=== PATIENT | female | born 1985 | race Caucasian/White ===

== ENCOUNTER 2017-05-21 07:50 | Emergency (ER) | payer OTHER ==
[2017-05-21 08:39] LABS: #Basophils 0.1 thou/uL (0.0-0.2); #Eosinphils 0.2 thou/uL (0.0-0.7); #Lymphocytes 1.6 thou/uL (1.20-3.40); #Monocytes 0.5 thou/uL (0.11-0.59); #Neutrophils 5.8 thou/uL (1.40-6.50); %Basophils 0.8 % (0.0-1.0); %Eosinophils 2.1 % (0.0-10.0); %Lymphocytes 20.1 % (21.0-51.0); %Monocytes 5.7 % (0.0-10.0); Hematocrit 41.3 % (36.0-47.0); Mean Platelet Volume 7.4 fL (7.4-10.4); Red Blood Cell (RBC) Count 4.11 mill/uL (4.20-5.40); White Blood Cell (WBC) Count 8.1 thou/uL (4.8-10.8)
[2017-05-21] MEDS ORDERED: Ketorolac Tromethamine 30 MG/ML VIAL ONE (08:48)
[2017-05-21 08:52] LABS: Bilirubin Negative (Negative); Blood, Urine Negative (Negative); Glucose, Urine (Dipstick) Negative (Negative); Ketone, Urine Negative (Negative); Nitrite Negative (Negative); Protein, Urine (Dipstick) Negative (Neg-Trace); Urobilinogen 0.2 mg/dL (0.2-1.0)
[2017-05-21 09:09] LABS: ALT (SGPT) 10 U/L (8-55); AST (SGOT) 14 U/L (5-34); Alkaline Phosphatase 63 U/L (40-150); Anion Gap 11 mmol/L (10-20); BUN (Urea Nitrogen) 12 mg/dL (7.0-18.7); Bilirubin, Total 0.7 mg/dL (0.2-1.2); Calc. Creatinine Clearance 0 mL/min (70-130); Calcium 8.7 mg/dL (7.8-10.44); Carbon Dioxide 24 mmol/L (22-29); Chloride 106 mmol/L (98-107); Estimated GFR-MDRD 82; Globulin 3.6 g/dL (2.4-3.5); Protein, Total 7.8 g/dL (6.0-8.3)
--- NOTE | 2017-05-21 10:51 | CT ---
CT ABDOMEN AND PELVIS WITH ORAL AND IV CONTRAST: Date: 05/21/17 HISTORY: Periumbilical abdominal pain. FINDINGS: The lung bases are clear. The liver, spleen, pancreas, adrenal glands, and kidneys are normal. No jak cified gallstones are seen. No free air, free fluid, or lymphadenopathy seen in the abdomen or pelvis . The small bowel loops are not abnormally dilated. A normal appearing appendix is present. Uterus an d ovaries are visualized. There is fecal material in the colon. No acute osseous abnormalities are se en. IMPRESSION: No evidence of acute process. POS: [facility]
[2017-05-21] MEDS ORDERED: Iopamidol 370 76% 50 ML VIAL FS ONE (12:16)
[2017-05-21] MEDS ORDERED: ISOVUE-370 76%-LOCM 1 ML ONE (12:16)
== END 2017-05-21 10:25 | disposition home or self-care (01) ==
LOC: ERS 07:50
DX: R10.33 Periumbilical pain (principal); E78.5 Hyperlipidemia, unspecified
CPT/HCPCS: 74177; 80053; 81003; 81025; 85025; 96374; J1885

== ENCOUNTER 2017-07-20 08:15 | Emergency (ER) | payer OTHER ==
--- NOTE | 2017-07-20 09:49 | RAD ---
PA AND LATERAL VIEWS CHEST: HISTORY: Chest pain. FINDINGS: The heart size is normal. The lungs are expanded and clear. The bony thorax is normal. IMPRESSION: Normal exam. POS: [facility]
[2017-07-20] MEDS ORDERED: methylPREDNISolone Sod Succ/PF 125 MG/2 ML VIAL ONE (10:43)
== END 2017-07-20 11:06 | disposition home or self-care (01) ==
LOC: ERS 08:15
DX: J20.9 Acute bronchitis, unspecified (principal)
CPT/HCPCS: 36415; 71046; 85379; 87081; 87430; 93005; 96372; J2930

== ENCOUNTER 2018-01-01 07:21 | Emergency (ER) | payer BC, OTHER ==
[2018-01-01] MEDS ORDERED: Proparacaine 0.5% Opth 15 ML BOT ONE (07:44)
[2018-01-01] MEDS ORDERED: Dexamethasone 10 MG/ML VIAL ONE (07:45)
[2018-01-01] MEDS ORDERED: Ketorolac Tromethamine 30 MG/ML VIAL ONE (07:45)
[2018-01-01] MEDS ORDERED: Metoclopramide HCl 10 MG/2 ML VIAL ONE (07:45)
== END 2018-01-01 08:58 | disposition home or self-care (01) ==
LOC: ERS 07:21
DX: G43.809 Other migraine, not intractable, without status migrainosus (principal)
CPT/HCPCS: 96374; 96375; J1100; J1885; J2765

== ENCOUNTER 2018-01-03 20:19 | Emergency (ER) | payer BC ==
[2018-01-03] MEDS ORDERED: Metoclopramide HCl 10 MG/2 ML VIAL ONE (21:48)
[2018-01-03] MEDS ORDERED: diphenhydrAMINE 50 MG/ML VIAL ONE (21:48)
[2018-01-04] MEDS ORDERED: Lorazepam 2 MG/ML VIAL ONE (01:31)
[2018-01-04] MEDS ORDERED: Morphine 4 MG/ML VIAL ONE (01:31)
[2018-01-04] MEDS ORDERED: Ondansetron HCl/PF 4 MG/2 ML Vial ONE (01:31)
[2018-01-04] MEDS ORDERED: Lidocaine 1% (PF) 30 ML VIAL ONE (01:51)
[2018-01-04 02:52] LABS: BHCG - Serum Negative (NEGATIVE); Pregs Control Background? CLEAR/WHITE (CLR/WHITE); Pregs Control Bar Appear? YES (CONTROL BAR)
[2018-01-04] MEDS ORDERED: Ketorolac Tromethamine 30 MG/ML VIAL ONE (02:56)
[2018-01-04 02:57] LABS: Color Of CSF Supernatant COLORLESS (Colorless); Tube # 2; Unspun CSF Color COLORLESS (Colorless)
[2018-01-04 03:06] LABS: CSF, Glucose 47 mg/dl (40-70); CSF, Protein 20 mg/dL (15-40)
[2018-01-04 03:10] LABS: CSF Source CSF; Clarity Clear (Clear); Tube # 4
[2018-01-04 03:15] LABS: RBC Count - Manual 17 /cumm (None Seen); WBC/NonHematics Count - Manual 2 /cumm (0-5)
[2018-01-04 03:26] LABS: CSF Source CSF; Clarity Clear (Clear); Tube # 1; WBC/NonHematics Count - Manual 2 /cumm (0-5)
[2018-01-04 03:27] LABS: RBC Count - Manual 52 /cumm (None Seen)
--- NOTE | 2018-01-04 08:36 | CT ---
HEAD CT NONCONTRAST: Indication: Headache. FINDINGS: Normal size of ventricular system. No intracranial hemorrhage, mass effect, or midline shift. There i s prominent opacification of the ethmoid sinus, more notable on the right. There is a punctate nonspecific hypodense focus of the posterior right centrum semiovale. IMPRESSION: 1. No acute intracranial hemorrhage or mass effect. 2. Small hypodensity of the posterior right centrum semiovale. This is not fully characterized on the basis of noncontrast CT, although it could relate to an area of gliosis, or possibly edema. Follow u p with pre and post contrast brain MRI would prove useful to more definitely characterize. 3. Paranasal sinus disease, notably at the ethmoid sinus. Code T POS: [facility]
== END 2018-01-04 03:44 | disposition home or self-care (01) ==
LOC: ERS 20:19
DX: R51 Headache (principal); Z79.899 Other long term (current) drug therapy
CPT/HCPCS: 62270; 70450; 82945; 84157; 84703; 87070; 87205; 89051; 96361; 96365; 96375; J1200; J1885; J2001; J2060; J2270; J2405; J2765

== ENCOUNTER 2018-02-25 15:43 | Outpatient (CLI) | payer BC ==
[2018-02-25 17:10] LABS: Hemoglobin 12.4 g/dL (12.0-16.0); Mean Corpuscular HGB CONC 32.8 g/dL (32.0-36.0); Mean Corpuscular Volume 97.4 fL (78.0-98.0); Mean Platelet Volume 7.9 fL (7.4-10.4); Platelet Count 222 thou/uL (130-400); RBC Distribution Width 11.4 % (11.5-14.5); Red Blood Cell (RBC) Count 3.88 mill/uL (4.20-5.40); White Blood Cell (WBC) Count 6.9 thou/uL (4.8-10.8)
[2018-02-25 17:17] LABS: BHCG - Serum Negative (NEGATIVE); Pregs Control Background? CLEAR/WHITE (CLR/WHITE); Pregs Control Bar Appear? YES (CONTROL BAR)
== END 2018-02-25 15:44 | disposition home or self-care (01) ==
LOC: LABBT 15:43
PROVIDERS: ATTEND Obstetrics & Gynecology
DX: Z01.812 Encounter for preprocedural laboratory examination (principal); N94.10 Unspecified dyspareunia; R10.2 Pelvic and perineal pain; G89.29 Other chronic pain
CPT/HCPCS: 84703; 85027; 86850; 86900; 86901

== ENCOUNTER 2018-03-03 07:48 | Day surgery (SDC) | payer BC ==
[2018-02-25 16:22] VITALS: BMI 27.8
--- NOTE | 2018-03-03 08:02 | HP ---
ADMITTING DIAGNOSES: Chronic dyspareunia and right pelvic pain with suspected possible endometriosis and adnexal effusions to right anterior abdominal wall. SCHEDULED PROCEDURE: Da Alcira laparoscopic with probable right salpingo-oophorectomy and possible ex cision of endometriosis. HISTORY OF PRESENT ILLNESS: Ms. Vincent is a 32-year-old 4, para 3, AB 1, status post , who has a long history of chronic right lower quadrant pain. It is adnexal in nature and was also dyspareunia. Exam is consistent with adhesions of the adnexa to the anterior abdominal wall and the patient desires definitive surgical management with laparoscopic excision. OB AND AUTOMOTIVE SERVICE WRITER HISTORY: As noted, history of a LEEP in the past. No STDs. Currently on oral con traceptive. PAST MEDICAL HISTORY: Denies. PAST SURGICAL HISTORY: LEEP and delivery. MEDICATIONS: Ibuprofen and TriNessa. ALLERGIES: PENICILLIN. SOCIAL HISTORY: Smoking in the past. REVIEW OF SYSTEMS: Noncontributory. PHYSICAL EXAMINATION: VITAL SIGNS: Reveals a white female, 5 feet 2, 150, BMI 27, blood pressure 114/72, pulse 65, respira tions 16. HEENT: Within normal limits. LUNGS: Clear to auscultation bilaterally. HEART: Regular rhythm. BREASTS: No masses bilaterally. ABDOMEN: Soft and nontender. PELVIC: Vulva without lesions. Vagina without discharge. Cervix is parous. Her uterus is antevert ed, smooth, nontender. Adnexa tender with palpable mass against her anterior abdominal wall on the r ight. Left is unremarkable. EXTREMITIES: Without clubbing, cyanosis or edema. IMPRESSION: Chronic dyspareunia and pelvic pain in the right with a tender adnexa. most likely scen ario seems to be adhesions associated with previous , but endometriosis cannot be ruled out. PLAN: Discussed with patient options. We will proceed with laparoscopic right salpingo-oophorectomy with da Alcira and possible excision of endometriosis. Patient understands the risks and benefits of the procedure including infertility, early menopause, injury to bowel or bladder, persistence of her pain, and possible recurrence of her pain. We will administer appropriate antibiotic and DVT prophy laxis.
[2018-03-03] MEDS ORDERED: CEFAZOLIN/Water 2 GM/20 ML SYRINGE ONE (08:44)
[2018-03-03] MEDS ORDERED: Gabapentin 300 MG CAP ONE (08:45)
[2018-03-03] MEDS ORDERED: CeleCOXIB 100 MG CAP ONE (08:46)
[2018-03-03] MEDS ORDERED: Famotidine/PF 20 mg/2ml Vial ONE (08:46)
[2018-03-03] MEDS ORDERED: Bupivacaine HCl 0.5%/Epinephrine 1:200,000/PF 30 ml Vial ONE (08:58)
[2018-03-03] MEDS ORDERED: Midazolam HCl 2 mg/2 ml Vial ONE ×2 (09:12→10:08)
[2018-03-03] MEDS ORDERED: Promethazine HCl 25 MG/ML VIAL ONE ×2 (10:08→11:58)
[2018-03-03] MEDS ORDERED: Fentanyl 100 MCG/2 ML VIAL ONE (10:08)
[2018-03-03] MEDS ORDERED: SUGAMMADEX SODIUM 200 MG/2 ML VIAL ONE (11:18)
[2018-03-03] MEDS ORDERED: Dexamethasone 20 MG/5 ML VIAL ONE (11:25)
[2018-03-03] MEDS ORDERED: ePHEDrine/0.9% NaCl/PF SYRINGE 50 mg/10 ml ONE (11:25)
[2018-03-03] MEDS ORDERED: Lidocaine 1% PF 5 ML VIAL ONE (11:25)
[2018-03-03] MEDS ORDERED: PROPOFOL 200 MG/20 ML VIAL ONE (11:25)
[2018-03-03] MEDS ORDERED: Glycopyrrolate 0.2 MG/ML 5 ML SYRINGE ONE (11:25)
[2018-03-03] MEDS ORDERED: PHENYLEPHRINE-NS 100 MCG/ML 10 ML SYRINGE ONE (11:25)
[2018-03-03] MEDS ORDERED: Ondansetron HCl/PF 4 MG/2 ML Vial ONE (11:25)
[2018-03-03] MEDS ORDERED: Morphine 2 MG/ML SYRINGE ONE (12:48)
--- NOTE | 2018-03-03 13:12 | OP ---
DATE OF PROCEDURE: 03/03/2018 PREOPERATIVE DIAGNOSES: Chronic pelvic pain, right adnexal tenderness with adhesion of the uterus an d right adnexa to the anterior abdominal wall. POSTOPERATIVE DIAGNOSES: Chronic pelvic pain, right adnexal tenderness with adhesion of the uterus a nd right adnexa to the anterior abdominal wall, plus omental adhesions to the anterior abdominal wal l. PROCEDURE: Laparoscopic right salpingo-oophorectomy, lysis of adhesions. SURGEON: Óscar Linder M.D. MECHANICAL ESTIMATOR: Chuyita Granados D.O. ANESTHESIA: General endotracheal. ESTIMATED BLOOD LOSS: Less than 25 mL. COMPLICATIONS: None. SPECIMENS REMOVED: Right tube and ovaries. OPERATIVE FINDINGS: 1. Omental adhesions to the anterior abdominal wall from just below the level of the umbilicus to e fundus of the uterus. 2. Extremely dense adhesions to the anterior abdominal wall, the uterus unable to be taken down lapa roscopically without the need to proceed with hysterectomy. 3. Thin filmy adhesions of the adnexa to the uterus and the anterior abdominal wall taken down with removal of the right adnexa. 4. Normal appearing left tube and ovary. DISPOSITION: To the recovery room in good condition. DESCRIPTION OF OPERATIVE PROCEDURE: After obtaining appropriate consent, the patient was taken to [facility] operating room where general endotracheal anesthesia was achieved without difficulty. Speculum melinda kenisha in vagina, cervix identified, grasped with the single tooth tenaculum, ____ placed inside. A Fol ey catheter placed in the bladder and speculum and tenaculum were removed. Hairspring Truing Inspector changed his atte ntion to the abdominal portion of procedure. 5 mL of Marcaine injected at the base of umbilicus. A 12 mm skin incision made. Freeze needle placed inside abdominal cavity. Confirmation of entry into the peritoneal cavity via saline drop test. Insufflation was carried out with carbon dioxide max pre ssure 15. A 12 mm trocar was introduced. Upon introducing the 12 mm trocar the uterine fundus and o mental adhesions were so close the decision was made to place an 8 mm trocar for the da Alcira scope a pproximately 4 cm above the umbilicus. This was done under direct visualization. Right and left lat eral trocars lateral to the epigastric vessels were placed without difficulty and a 5 mm curatorial assistant po rt in the right upper quadrant. Bipolar Maryland's were placed in the left hand da Alcira and monopol ar scissors in the right. Omental adhesions were taken down in a stepwise manner, taking care to ass ure that there was no bowel included in the adhesions. This was taken down to the level of the fundu s of the uterus. At the level of fundus of the uterus the adhesions became more dense of the uterus to the anterior abdominal wall, approach from above, from right and from left lateral were all unsucc essful in developing a clear cleavage plane between the uterus and the anterior abdominal wall. Atte mpts at taking down the uterus and the anterior abdominal wall were abandoned because of concerns mana t really would end up digging into the uterus and require a hysterectomy for management of hemostasis . Then, filmy adhesions on the right were then taken down, the ureter identified on the right. The IP and the utero-ovarian were coagulated and transected and then to the mesosalpinx and mesovarium an d specimen was removed and then placed into a 10 mm retrieval bag through the 12 mm trocar. The da V inci was undocked. Suction irrigation had revealed no further bleeding and no other abnormalities. The specimen was retrieved through the 12 mm trocar incision. Abdomen desufflated of carbon dioxide. Fascia at the level of the 12 mm trocar reapproximated using 0 Vicryl on a UR-5 needle. Skin reapp roximated x5 using 4-0 Monocryl and Dermabond. Hulka manipulator and Jackson catheter were removed. T he patient awakened, extubated, and taken to recovery room in good condition.
== END 2018-03-03 15:13 | disposition home or self-care (01) ==
LOC: SDC 07:48
PROVIDERS: ATTEND Obstetrics & Gynecology
PROC: 0UB04ZZ Excision of Right Ovary, Percutaneous Endoscopic Approach (ICD-10-PCS; principal; 2018-03-03)
PROC: 0UB54ZZ Excision of Right Fallopian Tube, Percutaneous Endoscopic Approach (ICD-10-PCS; principal; 2018-03-03)
DX: N80.2 Endometriosis of fallopian tube (principal); N80.1 Endometriosis of ovary; N83.11 Corpus luteum cyst of right ovary; N73.6 Female pelvic peritoneal adhesions (postinfective); G89.29 Other chronic pain; R10.2 Pelvic and perineal pain; N94.10 Unspecified dyspareunia; Z79.3 Long term (current) use of hormonal contraceptives
CPT/HCPCS: 88305; 96374; 96375; J0131; J0670; J1100; J2001; J2250; J2270; J2405; J2550; J2704; J3010; Q9968; S0028

== ENCOUNTER 2018-04-15 16:26 | Outpatient (CLI) | payer BC ==
[2018-04-15 17:24] LABS: Hemoglobin 12.7 g/dL (12.0-16.0); Mean Corpuscular HGB CONC 33.5 g/dL (32.0-36.0); Mean Corpuscular Volume 95.6 fL (78.0-98.0); Mean Platelet Volume 8.2 fL (7.4-10.4); Platelet Count 244 thou/uL (130-400); RBC Distribution Width 11.6 % (11.5-14.5); Red Blood Cell (RBC) Count 3.98 mill/uL (4.20-5.40); White Blood Cell (WBC) Count 6.9 thou/uL (4.8-10.8)
[2018-04-15 17:27] LABS: BHCG - Serum Negative (NEGATIVE); Pregs Control Background? CLEAR/WHITE (CLR/WHITE); Pregs Control Bar Appear? YES (CONTROL BAR)
== END 2018-04-15 16:27 | disposition home or self-care (01) ==
LOC: LABBT 16:26
PROVIDERS: ATTEND Obstetrics & Gynecology
DX: Z01.812 Encounter for preprocedural laboratory examination (principal); N94.6 Dysmenorrhea, unspecified; R10.2 Pelvic and perineal pain; G89.29 Other chronic pain
CPT/HCPCS: 84703; 85027; 86850; 86900; 86901

== ENCOUNTER 2018-04-19 07:38 | Observation (INO) | payer BC ==
[2018-04-15 17:04] VITALS: BMI 27.4
--- NOTE | 2018-04-18 10:22 | HP ---
DATE OF ADMISSION: 04/19/2018 SCHEDULED PROCEDURE: Total laparoscopic hysterectomy with left salpingectomy. HISTORY OF PRESENT ILLNESS: Ms. Vincent is a 32-year-old 4, para 3, AB 1, who underwent a lapar oscopy and right salpingo-oophorectomy in March. She had a palpable mass that was right-sided and syncope related to her right adnexa. At the time of surgery, dense adhesions of the right adnexa and the uterus to the anterior abdominal wall was encountered. The right salpingo-oophorectomy was perf ormed, but it has not relieved the patient's pain. It is obvious after visualization and exam postop eratively that the patient's pain is more related to severe dysmenorrhea and adhesions to the anterio r abdominal wall of the uterus. The patient desires definitive surgical management. OB AND JEWELRY SALES HISTORY: Status post x1, history of LEEP in the past, no STDs, on oral contrace ptives. PAST MEDICAL HISTORY: None. PAST SURGICAL HISTORY: LEEP, delivery, and laparoscopic RSO. MEDICATIONS: Ibuprofen and TriNessa. ALLERGIES: PENICILLIN, rash. SOCIAL HISTORY: Denies tobacco, alcohol, IV drug abuse. History of smoking in the past. REVIEW OF SYSTEMS: Noncontributory. PHYSICAL EXAMINATION: GENERAL: White female. VITAL SIGNS: Height 5 feet 2, weight 150, blood pressure 118/82, respirations 18, pulse 85. HEENT: Within normal limits. LUNGS: Clear to auscultation bilaterally. HEART: Regular rhythm. BREASTS: No mass bilaterally. ABDOMEN: Soft, nontender, no rebound, no guarding. PELVIC: Vulva without lesions. Vagina without discharge. Cervix parous. Uterus anteverted, densel y adhered to the anterior abdominal wall, level of previous . No palpable mass noted on the left. EXTREMITIES: A densely adherent uterus to the anterior abdominal wall with chronic pelvic pain and d yspareunia. PLAN: Discussed with patient options. The patient strongly desires definitive management with hyste rectomy. She understands risks and benefits of procedure including infertility. She also understand s, because of the dense adhesions, incidence of iatrogenic bladder injury is increased and may need t o perform cystoscopy at the time of surgery. She also understands that, if bladder injury is encount ered at the time of surgery, she would require prolonged drainage with Jackson catheter. She gives yuly bal and written informed consent for the procedure. We will administer appropriate antibiotic and DV T prophylaxis.
[2018-04-19] MEDS ORDERED: Gabapentin 300 MG CAP ONE (08:14)
[2018-04-19] MEDS ORDERED: CEFAZOLIN 2 GM/50 ML BAG ONE (08:14)
[2018-04-19] MEDS ORDERED: CeleCOXIB 100 MG CAP ONE (08:14)
[2018-04-19] MEDS ORDERED: Famotidine/PF 20 mg/2ml Vial ONE ×2 (08:14→08:15)
[2018-04-19] MEDS ORDERED: Bupivacaine HCl 0.5%/Epinephrine 1:200,000/PF 30 ml Vial ONE (09:10)
[2018-04-19] MEDS ORDERED: Fentanyl 250 MCG/5 ML VIAL ONE (09:18)
[2018-04-19] MEDS ORDERED: Meperidine HCl/PF 25 MG/ML VIAL ONE (11:21)
[2018-04-19] MEDS ORDERED: Ondansetron PF 4 MG/2 ML Vial ONE (11:35)
[2018-04-19] MEDS ORDERED: Promethazine HCl 25 MG/ML VIAL IM PRN ×2 (11:42→12:37)
[2018-04-19] MEDS ORDERED: Promethazine HCl 25 MG/ML VIAL SLOW IVP PRN (11:42)
[2018-04-19] MEDS ORDERED: Ondansetron HCl/PF 4 MG/2 ML Vial IVP PRN (11:42)
[2018-04-19] MEDS ORDERED: HYDROcodone/Acetaminophen 10/325 mg Tablet PO PRN (12:37)
[2018-04-19] MEDS ORDERED: Ondansetron PF 4 MG/2 ML Vial IVP PRN (12:37)
[2018-04-19] MEDS ORDERED: Simethicone Chewable 80 MG TAB PO PRN (12:37)
[2018-04-19] MEDS ORDERED: Zolpidem Tartrate 5 MG TAB PO PRN (12:37)
[2018-04-19] MEDS ORDERED: diphenhydrAMINE 25 MG CAP PO PRN (12:37)
[2018-04-19] MEDS ORDERED: Morphine 2 MG/ML SYRINGE SLOW IVP PRN (12:46)
[2018-04-19] MEDS: Sodium Chloride 0.9% 1,000 ML IV SCH ×2 (12:52→22:46)
[2018-04-19] MEDS: Ketorolac Tromethamine 30 MG/ML VIAL IVP SCH ×2 (13:19→18:55)
[2018-04-19] MEDS ORDERED: PROPOFOL 200 MG/20 ML VIAL ONE (15:06)
[2018-04-19] MEDS ORDERED: Ketorolac Tromethamine 30 MG/ML VIAL ONE (15:06)
[2018-04-19] MEDS ORDERED: Lidocaine 1% PF 5 ML VIAL ONE (15:06)
[2018-04-19] MEDS ORDERED: Glycopyrrolate 0.2 MG/ML 5 ML SYRINGE ONE (15:06)
[2018-04-19] MEDS ORDERED: ePHEDrine/0.9% NaCl/PF SYRINGE 50 mg/10 ml ONE (15:06)
[2018-04-19] MEDS ORDERED: Dexamethasone 20 MG/5 ML VIAL ONE (15:06)
[2018-04-19] MEDS: HYDROcodone/Acetaminophen 10/325 mg Tablet PO PRN (20:17)
--- NOTE | 2018-04-19 23:49 | OP ---
DATE OF PROCEDURE: 04/19/2018 PREOPERATIVE DIAGNOSES: Pelvic pain with severe dysmenorrhea and dyspareunia with dense adhesions of the entire uterus to the anterior abdominal wall. POSTOPERATIVE DIAGNOSES: Pelvic pain with severe dysmenorrhea and dyspareunia with dense adhesions o f the entire uterus to the anterior abdominal wall. PROCEDURE: Total laparoscopic hysterectomy with left salpingectomy and lysis of extensive and dense adhesions. SURGEON: Óscar Linder M.D. BLOCK MACHINE OPERATOR: Chuyita Granados D.O. ANESTHESIA: General endotracheal. ESTIMATED BLOOD LOSS: 100 mL. DRAINS: Jackson to gravity. MEDICATIONS: Two grams Ancef preincision. DVT PROPHYLAXIS: SCDs. OPERATIVE FINDINGS: 1. Dense adhesions of the uterus from the level of the cervix to the anterior abdominal wall, status post . 2. Adhesions of the cecum to the right side of the uterus. 3. Adhesions of the descending colon to the right adnexa. 4. Hemostasis, clear urine, counts correct at the end of the procedure. DISPOSITION: To the recovery room in good condition. DESCRIPTION OF OPERATIVE PROCEDURE: After obtaining proper informed consent, the patient was taken t o the operating room where general endotracheal anesthesia was achieved without difficulty. The kristina ent was prepped and draped in the usual manner. Sliding speculum was placed in the vagina and cervix identified, grasped with single tooth tenaculum. An 8 cm obturator and 3.5 cm vaginal ticket agent on the KATHRYN was placed without difficulty and the Jackson catheter was placed to drain the bladder approx imately 200 mL of clear urine. Holter Scanning Technician changed his gloves and turned his attention to the abdominal portion of procedure. A 5 mL of Marcaine injected approximately 2 cm above the umbilicus at the lev el of previous laparoscopic trocar. A 12 mm skin incision made and Veress needle placed inside abdom inal cavity. Confirmation of entry into the peritoneal cavity via saline drop test. Insufflation wa s carried out with carbon dioxide to a max pressure of 15, volume approximately 3.5 liters. A 12 mm trocar introduced and confirmation of entry into the peritoneal cavity without trauma to underlying v iscera was noted. The patient was placed in steep Trendelenburg position. Right and left lateral da Alcira robot assist ports were placed under direct visualization along with an 11 mm pediatric physician assistant port i n the right upper quadrant. Bipolar fenestrated forceps placed in the left hand and monopolar scisso rs in the right. Findings as noted in the operative findings were noted. Omental adhesions to the a nterior abdominal wall were taken down revealing the uterine fundus. Adhesions of the appendices epi ploicae surrounding the cecum were taken down on the patient's right and the same for the descending colon on the patient's left. On the left, the fallopian tube was grasped, mesosalpinx coagulated and transected up to the level of the uterus where it was amputated and removed through the pediatric physician assistant po rt and sent with the rest of the pathologic specimen. Because of the adhesions anteriorly, the utero -ovarian was on a good stretch on the left and it was coagulated and transected through the broad and down to the level of the round. Below the level of the round and medially on the uterus, there were no dense adhesions, precluded identification and dissection on this side. Attention was turned to t he right where again the dense adhesions were noted on this side. They were entered and dissected sh arply and with electrocautery. The bladder was filled and then deflated on that side to identify its location. Starting towards the top, dissection was carried down in a blunt and sharp dissection man ner in a meticulous manner down to the level just above that of the internal cervical os. After taki ng this down on the patient's left, I was able to identify the cardinal ligaments, coagulate and pena sect them down to the level of the internal cervical os. Bilaterally, the ureters were identified an d noted to be well lateral to the surgical plane and were kept visualized throughout the case and not ed to be lateral to any suture coagulation or transection. Multiple times during the case, the bladd er was inflated and then deflated to help identify its location. After much meticulous dissection on the patient's right, it was finally found the plane between the bladder and the cervix and this was entered laterally and moving medially. Moving medially on this was a facilitated identification and entry into the same avascular plane between the bladder and the cervix on the patient's left. Skelet ization of the uterine vessels on each side was carried out, electrocoagulated and transected. The b ladder was pushed down off the cervix and upper vagina. The peritoneum was opened posteriorly at the level of the uterosacral ligaments on both sides as well. Once all vascular pedicles have been coag ulated, they were transected at 3 and 9 o'clock. The vagina was entered at 12 o'clock and extended f rom 12 to 3 and 12 to 9, then from 6 to 3 and 6 to 9, amputating the specimen which was pulled into t he vagina to maintain pneumoperitoneum. Suction irrigation was carried out. No bleeding was noted. Ureters were identified easily bilaterally. The cuff was closed using a running continuous 0 PDS schneider ture locked suture in a 2-layer technique. Suction irrigation was carried out throughout the pelvis. Small areas of oozing were noted against the anterior abdominal wall above the level of the bladder where the uterus had been so densely adhesed to the peritoneum anteriorly. These were rendered hemo static with bipolar cautery. Tisseel was introduced in the abdomen and along with the surgical pedicles was covered with Tisseel and good hemostasis was noted throughout. Instruments were remove d. Da Alcira undocked. Abdomen was desufflated of carbon dioxide. Trocars removed. Fascia reapprox imated at the umbilical trocar site with 0 Vicryl. Skin reapproximated x4 using 4-0 Monocryl and Willie mabond. Specimen removed from the vagina, cuff inspected and noted be intact and dry. The patient w as awakened, extubated and taken to the recovery room in good condition.
[2018-04-20] MEDS: Ketorolac Tromethamine 30 MG/ML VIAL IVP SCH ×2 (01:03→08:36)
[2018-04-20 06:22] LABS: Hemoglobin 11.1 g/dL (12.0-16.0); Mean Corpuscular HGB CONC 31.7 g/dL (32.0-36.0); Mean Corpuscular Volume 97.8 fL (78.0-98.0); Mean Platelet Volume 8.3 fL (7.4-10.4); Platelet Count 197 thou/uL (130-400); RBC Distribution Width 11.7 % (11.5-14.5); Red Blood Cell (RBC) Count 3.58 mill/uL (4.20-5.40); White Blood Cell (WBC) Count 12.6 thou/uL (4.8-10.8)
[2018-04-20 08:03] VITALS: BP 106/64
[2018-04-20] MEDS: Sodium Chloride 0.9% 1,000 ML IV SCH (08:35)
[2018-04-20] MEDS: HYDROcodone/Acetaminophen 10/325 mg Tablet PO PRN (08:41)
[2018-04-20] MEDS ORDERED: Loratadine 10 MG TAB PO SCH (09:00)
[2018-04-20 09:56] VITALS: TEMP 98.3
--- NOTE | 2018-04-20 11:39 | DIS ---
DATE OF ADMISSION: 04/19/2018 DATE OF DISCHARGE: 04/20/2018 PRIMARY PROCEDURE: Total laparoscopic hysterectomy with lysis of extensive adhesions and left salpin gectomy with da Alcira robot. SUMMARY OF HOSPITAL COURSE: The patient underwent the aforementioned procedure on the a.m. of 2017. She had an estimated blood loss of less than 100 mL. Surgery was uncomplicated, but challengi ng secondary to dense adhesions. She has had an unremarkable postoperative course, has remained afeb rile, voiding with ease, and tolerating p.o. Postoperative day #1, hematocrit is 35%. PHYSICAL EXAMINATION: LUNGS: Clear to auscultation bilaterally. HEART: Regular rate and rhythm. BREASTS: No masses bilaterally. ABDOMEN: Soft and nontender, without rebound or guarding. No bruising. Incision is intact without erythema. Perineum is dry. EXTREMITIES: Without clubbing, cyanosis or edema. DISCHARGE INSTRUCTIONS: Patient is doing well and is ready for discharge. We will discharge home, t he patient already has prescription for [place], will follow up at [facility] [place] in 6 we eks.
== END 2018-04-20 10:30 | disposition home or self-care (01) ==
LOC: SDC 07:38 → 3SW 11:03 → EDSTATUS 17:00
PROVIDERS: ADMIT Obstetrics & Gynecology; ATTEND Obstetrics & Gynecology
PROC: 0UT94ZZ Resection of Uterus, Percutaneous Endoscopic Approach (ICD-10-PCS; principal; 2018-04-19)
PROC: 0UT64ZZ Resection of Left Fallopian Tube, Percutaneous Endoscopic Approach (ICD-10-PCS; 2018-04-19)
DX: N72 Inflammatory disease of cervix uteri (principal); N73.6 Female pelvic peritoneal adhesions (postinfective); G89.29 Other chronic pain; R10.2 Pelvic and perineal pain; R10.31 Right lower quadrant pain; N94.10 Unspecified dyspareunia; Z87.891 Personal history of nicotine dependence; Z79.3 Long term (current) use of hormonal contraceptives; Z79.899 Other long term (current) drug therapy; Z88.0 Allergy status to penicillin
CPT/HCPCS: 36415; 85027; 88307; 96361; 96374; 96375; 96376; G0378; J0131; J0670; J1100; J1885; J2001; J2175; J2405; J2704; J3010; S0028

== ENCOUNTER 2019-06-12 15:40 | Emergency (ER) | payer BC ==
[2019-06-12 16:12] LABS: Bilirubin Negative (Negative); Blood, Urine Negative (Negative); Clarity Clear (Clear); Glucose, Urine (Dipstick) Normal (Negative); Leukocyte Negative Leu/uL (Negative); Nitrite Negative (Negative); Protein, Urine (Dipstick) 10 mg/dL (Neg-Trace); Urobilinogen Normal mg/dL (Less than 2)
[2019-06-12] MEDS ORDERED: Ketorolac Tromethamine 60 MG/2 ML VIAL ONE (18:22)
[2019-06-12 18:34] LABS: #Eosinphils 0.2 thou/uL (0.0-0.7); #Lymphocytes 1.9 thou/uL (1.20-3.40); #Monocytes 0.6 thou/uL (0.11-0.59); #Neutrophils 4.8 thou/uL (1.40-6.50); %Basophils 0.3 % (0.0-1.0); %Eosinophils 2.9 % (0.0-10.0); %Lymphocytes 25.1 % (21.0-51.0); %Monocytes 7.4 % (0.0-10.0); %Neutrophils 64.3 % (42.0-75.0); Hemoglobin 13.4 g/dL (12.0-16.0); Mean Corpuscular Hemoglobin 32.7 pg (27.0-31.0); Mean Corpuscular Volume 96.3 fL (78.0-98.0); Mean Platelet Volume 7.9 fL (7.4-10.4); Platelet Count 206 thou/uL (130-400); RBC Distribution Width 11.3 % (11.5-14.5); White Blood Cell (WBC) Count 7.5 thou/uL (4.8-10.8)
[2019-06-12 18:54] LABS: ALT (SGPT) 9 U/L (8-55); AST (SGOT) 17 U/L (5-34); Albumin 4.2 g/dL (3.5-5.0); Alkaline Phosphatase 61 U/L (40-110); Anion Gap 13 mmol/L (10-20); BUN (Urea Nitrogen) 11 mg/dL (7.0-18.7); Bilirubin, Total 0.9 mg/dL (0.2-1.2); Calc. Creatinine Clearance 0 mL/min (70-130); Calcium 8.8 mg/dL (7.8-10.44); Carbon Dioxide 21 mmol/L (22-29); Chloride 108 mmol/L (98-107); Estimated GFR-MDRD 86; Globulin 3.3 g/dL (2.4-3.5); Glucose 74 mg/dL (70-105); Potassium 4.2 mmol/L (3.5-5.1); Protein, Total 7.5 g/dL (6.0-8.3); Sodium 138 mmol/L (136-145)
== END 2019-06-12 18:50 | disposition home or self-care (01) ==
LOC: ERS 15:40
DX: R10.9 Unspecified abdominal pain (principal)
CPT/HCPCS: 80053; 81003; 85025; 96372; 99284; J1885

== ENCOUNTER 2024-01-14 14:08 | Emergency (ER) | payer BC, SELFPAY ==
[2024-01-14 15:30] LABS: Influenza A by NAA Not Detected (NotDetected); Influenza B by NAA Not Detected (NotDetected); SARS-CoV-2 NAA Rapid Test Not Detected (NotDetected)
[2024-01-14] MEDS ORDERED: Oxymetazoline HCl 0.05% (30 ML BOT) ONE (15:48)
== END 2024-01-14 16:06 | disposition home or self-care (01) ==
LOC: ERS 14:08
DX: B34.9 Viral infection, unspecified (principal)
CPT/HCPCS: 99283